=== PATIENT | male | born 2000 | race Caucasian/White ===

== ENCOUNTER 2020-12-12 15:18 | Emergency (ER) | payer OTHER ==
[~2020-12-12] VITALS: Ht 182.9 cm; Wt 106.8 kg
[2020-12-12] MEDS ORDERED: ketorolac tromethamine 15mg/ml inj. IM ONE (17:45)
[2020-12-12 19:09] VITALS: BP 139/85
== END 2020-12-12 19:11 | disposition home or self-care (01) ==
LOC: ER 15:19
DX: S16.1XXA Strain of muscle, fascia and tendon at neck level, initial encounter (principal); S39.012A Strain of muscle, fascia and tendon of lower back, initial encounter; S09.90XA Unspecified injury of head, initial encounter; M79.662 Pain in left lower leg; H53.8 Other visual disturbances; R42 Dizziness and giddiness; Z87.81 Personal history of (healed) traumatic fracture; V69.88XA Occupant (driver) (passenger) of heavy transport vehicle injured in other specified transport accidents, initial encounter; Y93.89 Activity, other specified; Y92.89 Other specified places as the place of occurrence of the external cause; Y99.8 Other external cause status
CPT/HCPCS: 70450; 72125; 96372; 99285; J1885